=== PATIENT | male | born 1975 | race Two or more races ===

== ENCOUNTER 2017-05-09 17:33 | Emergency (ER) | payer OTHER ==
[~2017-05-09] VITALS: Ht 175.3 cm; Wt 84.1 kg
[2017-05-09 17:47] VITALS: BP 133/87
--- NOTE | 2017-05-09 18:31 | PHYS DOC ---
Past History Past Medical History: No Pertinent History Past Surgical History: Tonsillectomy Alcohol Use: Occasionally Drug Use: None Adult General Chief Complaint Chief Complaint: EYE PROBLEMS HPI HPI Patient is a 41 year old M who presents with redness in the left eye that started this morning. Jewel states that this morning he noticed a small area of redness on the left lateral eye does not associated pain or change in vision. During the day feels that this area increased in size but continues to have normal vision and no pain. He has a mild sensation of dryness in that eye but otherwise no symptoms. He has no exacerbating or alleviating factors. Review of Systems Review of Systems Constitutional: Denies fever or chills [] Eyes: Negative except history of present illness HENT: Denies nasal congestion or sore throat [] Respiratory: Denies cough or shortness of breath [] Cardiovascular: No additional information not addressed in HPI [] GI: Denies abdominal pain, nausea, vomiting, bloody stools or diarrhea [] : Denies dysuria or hematuria [] Musculoskeletal: Denies back pain or joint pain [] Integument: Denies rash or skin lesions [] Neurologic: Denies headache, focal weakness or sensory changes [] Endocrine: Denies polyuria or polydipsia [] Family History Family History Noncontributory Current Medications Current Medications Medications reviewed Allergies Allergies Allergies Coded Allergies Type Severity Reaction Last Updated Verified No Known Drug Allergies 05/09/17 No Physical Exam Physical Exam Constitutional: Well developed, well nourished, no acute distress, non-toxic appearance. [] HENT: Normocephalic, atraumatic, bilateral external ears normal, oropharynx moist, no oral exudates, nose normal. [] Eyes: PERRLA, EOMI, hyphema noted in the left lateral inferior eye. Neck: Normal range of motion, no tenderness, supple, no stridor. [] Cardiovascular:Heart rate regular rhythm, no murmur [] Lungs & Thorax: Bilateral breath sounds clear to auscultation [] Abdomen: Bowel sounds normal, soft, no tenderness, no masses, no pulsatile masses. [] Skin: Warm, dry, no erythema, no rash. [] Back: No tenderness, no CVA tenderness. [] Extremities: No tenderness, no cyanosis, no clubbing, ROM intact, no edema. [] Neurologic: Alert and oriented X 3, normal motor function, normal sensory function, no focal deficits noted. [] Psychologic: Affect normal, judgement normal, mood normal. [] Current Patient Data Vital Signs Vital Signs Date Time Temp Pulse Resp B/P (MAP) Pulse Ox O2 Delivery O2 Flow Rate FiO2 05/09/17 17:47 97.8 54 20 99 Room Air EKG EKG [] Radiology/Procedures Radiology/Procedures [] Course & Med Decision Making Course & Med Decision Making Pertinent Labs and Imaging studies reviewed. (See chart for details) [] Dragon Disclaimer Dragon Disclaimer This chart was dictated in whole or in part using Voice Recognition software in a busy, high-work load, and often noisy Emergency Department environment. It may contain unintended and wholly unrecognized errors or omissions. Departure Departure: Impression: Primary Impression: Hyphema of left eye Disposition: HOME, SELF-CARE Condition: STABLE Referrals: DENTON JUARES DO, [facility] (PCP) Patient Instructions: Hyphema Additional Instructions: Jewel was seen in the emergency department for an eye problem. No emergency medical condition was found on history or physical exam. His symptoms were most consistent with a hyphema or a hematoma of the eye. He was advised to use locating eyedrops. He was also advised to return the emergency room if he notices any changes in vision or develops pain in his eye. Otherwise he is advised follow-up with primary care doctor as needed for further management LESLI JORGENSEN MD May 09, 2017 18:31
== END 2017-05-09 18:38 | disposition home or self-care (01) ==
LOC: ER 17:33
DX: H21.02 Hyphema, left eye (principal)
CPT/HCPCS: 99281